=== PATIENT | female | born 1965 | race American Indian/Alaskan Native ===

== ENCOUNTER 2019-07-14 12:41 | Emergency (ER) | payer OTHER ==
--- NOTE | 2019-07-14 13:08 | Event Note ---
ED Screening Note Date of service: 07/14/19 Time: 13:02 ED Screening Note: This is a 53 y.o. F. that presents to the ER with palpitations and headache since this morning. Taking Tylenol with no improvement of symptoms. This initial assessment/diagnostic orders/clinical plan/treatment(s) is/are subject to change based on patients health status, clinical progression and re- assessment by fellow clinical providers in the ED. Further treatment and workup at subsequent clinical providers discretion. Patient/guardian urged not to elope from the ED as their condition may be serious if not clinically assessed and managed. Initial orders include: Labs EKG CXR
--- NOTE | 2019-07-14 13:32 | XRay Report ---
CHEST 2 VIEWS INDICATION / CLINICAL INFORMATION: palpitations. COMPARISON: None available. FINDINGS: SUPPORT DEVICES: None. HEART / MEDIASTINUM: There is atherosclerosis in the thoracic aorta with mild ectasia of the thoracic aorta. Heart size is normal. LUNGS / PLEURA: No significant pulmonary or pleural abnormality. No pneumothorax. ADDITIONAL FINDINGS: No significant additional findings. IMPRESSION: 1. No acute pulmonary abnormality. 2. Mild ectasia of the thoracic aorta, chronicity indeterminate. Signer Name: Christo Fisher MD Signed: 07/14/2019 1:28 PM Workstation Name: [id number]
[2019-07-14 13:52] LABS: Eosinophils % (Auto) 0.6 % (0.0-4.3); Hematocrit 42.5 % (30.3-42.9); Hemoglobin 14.3 gm/dl (10.1-14.3); Lymphocytes # (Auto) 1.7 K/mm3 (1.2-5.4); Lymphocytes % (Auto) 35.4 % (13.4-35.0); Mean Corpuscular HGB Conc 34 % (30-34); Mean Corpuscular Volume 94 fl (79-97); Monocytes # (Auto) 0.4 K/mm3 (0.0-0.8); Monocytes % (Auto) 7.6 % (0.0-7.3); Platelet Count 267 K/mm3 (140-440); Red Cell Distribution Width 12.7 % (13.2-15.2)
[2019-07-14 14:10] LABS: Alanine Aminotransferase 27 units/L (7-56); Albumin 5.1 g/dL (3.9-5); BUN/Creatinine Ratio 13; Blood Urea Nitrogen 9 mg/dL (7-17); Calcium 10.6 mg/dL (8.4-10.2); Hemolysis Index 5
[2019-07-14] MEDS: cloNIDine 0.1 MG TAB PO ONE ×2 (14:22→17:55)
[2019-07-14] MEDS: ASPIRIN 81 MG TAB CHEW PO ONE (14:22)
[2019-07-14 14:37] LABS: INR 1.23 (0.87-1.13); Partial Thromboplastin Time 32.8 Sec. (24.2-36.6)
--- NOTE | 2019-07-14 17:48 | Emergency Department Report ---
<ESTRELLA POPE P - Last Filed: 07/14/19 18:18> ED Palpitations HPI - General Chief Complaint: Arrhythmia/Palpitations Stated Complaint: HEART RACING/BP HIGH Time Seen by Provider: 07/14/19 13:02 Source: patient Mode of arrival: Ambulatory Limitations: No Limitations - History of Present Illness Initial Comments: Patient reports palpitations. Reports she feels like her body is vibrating. Reports hx of HTN. Reports non-compliant with anti-hypertensives for approximately 10 years. Reports she uses herbs to treat her HTN. Denies drugs/alcohol. -: Gradual, days(s) Context: occured during rest Associated Symptoms: denies: chest pain, shortness of breath, syncope, near- syncope, nausea/vomiting, anxiety, diaphoresis, cough, parasthesias, feeling of impending doom, muscle cramps - Related Data Previous Rx's Medication Instructions Recorded Last Taken Type Azithromycin [Zithromax Z-JEANETTE] 250 mg PO DAILY #6 tablet 07/14/19 Unknown Rx amLODIPine 10 mg PO DAILY #30 tab 07/14/19 Unknown Rx hydroCHLOROthiazide [Hctz] 12.5 mg PO QDAY #30 capsule 07/14/19 Unknown Rx Allergies Allergy/AdvReac Type Severity Reaction Status Date / Time No Known Allergies Allergy Verified 07/14/19 20:34 ED Review of Systems Other: GENERAL: No weight change, fatigue, fever, chills, or night sweats SKIN: No changes in skin or hair, no itching, no rashes, no jaundice HEAD: No trauma EYES: No blurriness, tearing, itching, acute visual loss, conjunctival discoloration, or scleral icterus EARS: No hearing loss, tinnitus, vertigo, or earache NOSE: No rhinorrhea, stuffiness, sneezing, itching, or epistaxis MOUTH: No bleeding gums, hoarseness, sore throat, or swelling CARDIAC: Palpitations. No new murmur, chest pain, dyspnea on exertion, orthopnea, PND, or edema RESPIRATORY: No shortness of breath, wheeze, cough, sputum production, hemoptysis GI: No abdominal pain, nausea, vomiting, dysphagia, diarrhea, constipation, hematemesis, melena, hematochezia URINARY: No frequency, urgency, polyuria, dysuria, hematuria, or incontinence MUSCULOSKELETAL: No muscle weakness, joint stiffness, decrease in range of motion, redness, swelling NEUROLOGIC: No headache, syncope, loss of sensation, numbness, tingling, tremors, weakness, paralysis, seizures HEMATOLOGIC: No anemia, easy bruising, bleeding, petechiae, or purpura ENDOCRINE: No hot or cold intolerance, sweating, polyuria, polydipsia or, polyphagia no thyroid problems PSYCHIATRIC: No change in mood, no anxiety, no depression ED Past Medical Hx - Past Medical History Previous Medical History?: Yes Hx Hypertension: Yes - Surgical History Past Surgical History?: Yes Additional Surgical History: x 2 - Social History Smoking Status: Never Smoker Substance Use Type: None - Medications Home Medications: Home Medications Medication Instructions Recorded Confirmed Last Taken Type Azithromycin [Zithromax Z-JEANETTE] 250 mg PO DAILY #6 tablet 07/14/19 Unknown Rx amLODIPine 10 mg PO DAILY #30 tab 07/14/19 Unknown Rx hydroCHLOROthiazide [Hctz] 12.5 mg PO QDAY #30 capsule 07/14/19 Unknown Rx ED Physical Exam - General Limitations: No Limitations - Other Other exam information: GENERAL: Patient in no acute distress HEAD: Normocephalic, atraumatic EYES: PERRLA, EOM intact, no scleral icterus, no conjunctival hemorrhage, visual joel and acuity wnl NOSE: No tenderness, discharge, sinus tenderness MOUTH: No erythema, bleeding, exudate HEART: Tachycardia, no murmur, S1-S2 are auscultated, no edema, pulses are symmetric LUNGS: No respiratory distress. Bilateral breath sounds, No tachypnea, No retractions, No wheezing, rales, rhonchi ABDOMEN: Normal bowel sounds, abdomen soft, no tenderness, no rebound, no guarding, no distention, no masses, no CVA tenderness MUSCULOSKELETAL: Normal joint range of motion, no redness, no swelling, no tenderness NEUROLOGIC: GCS 15, Alert and Oriented x3, Cranial nerves intact, normal sensation, normal strength, no cerebellar deficit, NIHSS 0 PSYCHIATRIC: No homicidal or suicidal ideation, o hallucinations SKIN: Skin is warm and dry, no wounds, no rashes ED Medical Decision Making - Lab Data Result diagrams: 07/14/19 13:24 07/14/19 13:24 Laboratory Results - last 24 hr 07/14/19 07/14/19 07/14/19 13:24 13:24 13:24 WBC 4.7 RBC 4.50 Hgb 14.3 Hct 42.5 MCV 94 MCH 32 MCHC 34 RDW 12.7 L Plt Count 267 Lymph % (Auto) 35.4 H [place] % (Auto) 7.6 H Eos % (Auto) 0.6 Baso % (Auto) 1.0 Lymph # 1.7 [place] # 0.4 Eos # 0.0 Baso # 0.0 Seg Neutrophils % 55.4 Seg Neutrophils # 2.6 PT INR APTT Sodium 140 Potassium 3.3 L Chloride 98.3 Carbon Dioxide 27 Anion Gap 18 BUN 9 Creatinine 0.7 Estimated GFR > 60 BUN/Creatinine Ratio 13 Glucose 137 H Calcium 10.6 H Magnesium Total Bilirubin 0.50 AST 37 ALT 27 Alkaline Phosphatase 71 Total Creatine Kinase Troponin T NT-Pro-B Natriuret Pep Total Protein 8.8 H Albumin 5.1 H Albumin/Globulin Ratio 1.4 TSH 0.834 07/14/19 07/14/19 07/14/19 13:24 14:07 14:07 WBC RBC Hgb Hct MCV MCH MCHC RDW Plt Count Lymph % (Auto) [place] % (Auto) Eos % (Auto) Baso % (Auto) Lymph # [place] # Eos # Baso # Seg Neutrophils % Seg Neutrophils # PT 15.7 H INR 1.23 H APTT 32.8 Sodium Potassium Chloride Carbon Dioxide Anion Gap BUN Creatinine Estimated GFR BUN/Creatinine Ratio Glucose Calcium Magnesium 1.90 Total Bilirubin AST ALT Alkaline Phosphatase Total Creatine Kinase 417 H Troponin T < 0.010 NT-Pro-B Natriuret Pep 38.90 Total Protein Albumin Albumin/Globulin Ratio TSH - EKG Data When compared to previous EKG there are: no significant change - Radiology Data Radiology results: report reviewed - Medical Decision Making patient comfortable. Dr. Gilmore updated and agrees to follow results and disposition patient ED Disposition Clinical Impression: Hypertension, Anxiety, Atelectasis of both lungs Disposition: TO HOME OR SELFCARE Condition: Stable Instructions: Hypertension (ED), Pneumonia (ED), Social Anxiety Disorder (ED) Additional Instructions: return if worse Prescriptions: amLODIPine 10 mg PO DAILY #30 tab hydroCHLOROthiazide [Hctz] 12.5 mg PO QDAY #30 capsule Azithromycin [Zithromax Z-JEANETTE] 250 mg PO DAILY #6 tablet Referrals: PRIMARY CARE, [Primary Care Provider] - 3-5 Days JESSICA UNGER MD [Staff Physician] - 3-5 Days MARCELL RAMIREZ MD [Staff Physician] - 3-5 Days [facility], [Provider Group] - 3-5 Days [facility] [Provider Group] - 3-5 Days [facility] [Provider Group] - 3-5 Days OLEGARIO LYMAN MD [Staff Physician] - 3-5 Days SADAF BETANCOURT MD [Staff Physician] - 3-5 Days <TURNER GILMORE. - Last Filed: 07/14/19 21:16> ED Review of Systems ROS: Stated complaint: HEART RACING/BP HIGH Other details as noted in HPI ED Course Vital Signs 07/14/19 07/14/19 07/14/19 13:03 14:57 15:11 Temperature 98.4 F Pulse Rate 138 H 118 H 117 H Respiratory 16 15 16 Rate Blood Pressure 233/154 217/130 208/133 Blood Pressure [Left] O2 Sat by Pulse 100 99 98 Oximetry 07/14/19 07/14/19 07/14/19 15:37 15:45 15:59 Temperature Pulse Rate 118 H 115 H 120 H Respiratory 17 17 17 Rate Blood Pressure 208/133 209/128 209/128 Blood Pressure [Left] O2 Sat by Pulse 99 99 98 Oximetry 07/14/19 07/14/19 07/14/19 16:43 17:15 17:56 Temperature Pulse Rate 123 H 126 H Respiratory 20 18 Rate Blood Pressure 183/129 186/116 Blood Pressure [Left] O2 Sat by Pulse 98 97 100 Oximetry 07/14/19 07/14/19 07/14/19 17:58 18:35 19:00 Temperature Pulse Rate 123 H 123 H 114 H Respiratory 14 18 15 Rate Blood Pressure 171/118 Blood Pressure 197/127 191/131 [Left] O2 Sat by Pulse 98 97 98 Oximetry 07/14/19 07/14/19 07/14/19 19:30 19:52 20:00 Temperature 98.7 F Pulse Rate 118 H 118 H 116 H Respiratory 17 17 17 Rate Blood Pressure 165/112 171/111 Blood Pressure 165/112 [Left] O2 Sat by Pulse 98 98 97 Oximetry 07/14/19 20:42 Temperature Pulse Rate 117 H Respiratory Rate Blood Pressure 175/117 Blood Pressure [Left] O2 Sat by Pulse Oximetry ED Medical Decision Making - Lab Data Result diagrams: 07/14/19 13:24 07/14/19 13:24 - Medical Decision Making Addendum done by Turner Gilmore M.D. Reexamination of the patient at 9:05 PM the patient's heart rate is 103. Discussed with patient any causes of having heart palpitations which she tells me she has a history of anxiety and social phobias. Discussed results with the patient and plan of care A she give IV labetalol for her blood pressure Critical Care Time: Yes Critical care time in (mins) excluding proc time.: 45 Critical care attestation.: If time is entered above; I have spent that time in minutes in the direct care of this critically ill patient, excluding procedure time. ED Disposition Is pt being admited?: No Does the pt Need Aspirin: No Time of Disposition: 21:13
--- NOTE | 2019-07-14 18:34 | Cat Scan Report ---
CTA chest with contrast INDICATION : Tachycardia. TECHNIQUE: Axial imaging performed through the chest, with contrast bolus timing set to maximize opa cification of the pulmonary arteries. 3-plane MIP reformatted images were obtained. All CT scans at this location are performed using CT dose reduction for ALARA by means of automated exposure control. 100 mL of intravenous contrast administered. COMPARISON: None FINDINGS: Bolus: Contrast bolus timing is adequate; however, there is respiratory motion artifact specially in the lung bases. PTE: The subsegmental distribution is suboptimally evaluated given the above limitations. No central or segmental PTE identified. Mediastinum: Heart and great vessels appear normal. No pathologic mediastinal adenopathy. Lungs: Mild streaky airspace disease greatest in the left lung base and in the right middle lobe sug gesting atelectasis. Otherwise clear lungs. Upper abdomen: Limited imaging of the upper abdomen shows nothing acute. Bones: Degenerative changes in the spine with nothing acute. IMPRESSION: 1. Motion limited exam in the lung bases which precludes adequate evaluation of the subsegmental dist ribution. No central or segmental PTE. 2. Areas of mild streaky airspace disease in the lungs likely representing atelectasis. Signer Name: Dimitri Branch MD Signed: 07/14/2019 6:29 PM Workstation Name: [id number]
[2019-07-14] MEDS: SODIUM CHLORIDE 0.9% 1000 ML 1,000 ML IV ONE (18:41)
[2019-07-14 19:48] LABS: Amphetamine Screen,Urine PRESUMPTIVE NEGATIVE; Benzodiazepines Screen,Urine PRESUMPTIVE NEGATIVE; Cannabinoid Screen,Urine PRESUMPTIVE NEGATIVE; Cocaine Screen,Urine PRESUMPTIVE NEGATIVE; Methadone Screen,Urine PRESUMPTIVE NEGATIVE; Opiate Screen,Urine PRESUMPTIVE NEGATIVE
[2019-07-14 19:49] LABS: Bilirubin,Urine NEG (Negative); Blood,Urine NEG (Negative); Color,Urine Straw (Yellow); Mucus,Urine FEW /HPF; Protein,Urine <15 mg/dL mg/dL (Negative); Urobilinogen,Urine < 2.0 mg/dL (<2.0); WBC,Urine < 1.0 /HPF (0.0-6.0)
[2019-07-14] MEDS: levoFLOXacin 750 MG TAB PO ONE (21:30)
[2019-07-14 22:00] VITALS: BP 147/97
== END 2019-07-14 21:59 | disposition home or self-care (01) ==
LOC: ED 12:41
DX: I10 Essential (primary) hypertension (principal); F41.9 Anxiety disorder, unspecified; J98.11 Atelectasis; Z98.890 Other specified postprocedural states; Z79.899 Other long term (current) drug therapy
CPT/HCPCS: 36415; 71046; 71275; 80053; 80307; 81001; 82550; 83735; 83880; 84443; 84484; 85025; 85610; 85730; 93005; 93010; 96374; 99285; Q9967

== ENCOUNTER 2019-07-21 10:11 | Emergency (ER) | payer OTHER ==
[2019-07-21 10:28] VITALS: BP 230/134
[2019-07-21 11:25] LABS: Hematocrit 42.5 % (30.3-42.9); Hemoglobin 14.4 gm/dl (10.1-14.3); Mean Corpuscular HGB Conc 34 % (30-34); Mean Corpuscular Volume 94 fl (79-97); Platelet Count 267 K/mm3 (140-440); Red Blood Count 4.55 M/mm3 (3.65-5.03); Red Cell Distribution Width 12.8 % (13.2-15.2)
[2019-07-21 11:53] LABS: Alanine Aminotransferase 37 units/L (7-56); Albumin 4.9 g/dL (3.9-5); BUN/Creatinine Ratio 13; Blood Urea Nitrogen 10 mg/dL (7-17); Calcium 10.5 mg/dL (8.4-10.2); Hemolysis Index 6
--- NOTE | 2019-07-21 12:22 | XRay Report ---
CHEST 2 VIEWS INDICATION: palpitations. COMPARISON: 07/14/2019 FINDINGS: Support devices: None. Heart: Within normal limits. Lungs/Pleura: No acute air space or interstitial disease. No significant pleural effusion. IMPRESSION: No acute findings. Signer Name: Jose Pena MD Signed: 07/21/2019 12:18 PM Workstation Name: [id number]
--- NOTE | 2019-07-21 12:40 | Emergency Department Report ---
HPI - General Chief Complaint: Arrhythmia/Palpitations Time Seen by Provider: 07/21/19 12:20 - HPI HPI: Room 4 The patient is a 54-year-old female presenting with a chief complaint of elevated heart rate. The patient was seen in this ED on 2019 for p alpitations. Patient was eventually discharged with amlodipine, hydrochlorothiazide and azithromycin. Patient states she stopped taking her amlodipine 3 days ago because she felt it may have been causing early satiety. The patient states for one week she's had a decreased appetite. Location: [See above] Duration: [See above] Quality: [See above] Severity: [See above] Timing: [See above] Context: [See above] Modifying factors: [See above] Associated signs and symptoms: [see above] ED Past Medical Hx - Past Medical History Previous Medical History?: Yes Hx Hypertension: Yes - Surgical History Past Surgical History?: Yes Additional Surgical History: x 2 - Family History Family history: no significant - Social History Smoking Status: Never Smoker Substance Use Type: None - Medications Home Medications: Home Medications Medication Instructions Recorded Confirmed Last Taken Type Azithromycin [Zithromax Z-JEANETTE] 250 mg PO DAILY #6 tablet 07/14/19 Unknown Rx amLODIPine 10 mg PO DAILY #30 tab 07/14/19 Unknown Rx hydroCHLOROthiazide [Hctz] 12.5 mg PO QDAY #30 capsule 07/14/19 Unknown Rx Metoprolol [Lopressor TAB] 25 mg PO BID #30 tablet 07/21/19 Unknown Rx ED Review of Systems ROS: Stated complaint: HEART RACING/BP Other details as noted in HPI Constitutional: no symptoms reported Eyes: denies: eye pain ENT: denies: throat pain Respiratory: no symptoms reported Cardiovascular: palpitations Endocrine: no symptoms reported Genitourinary: denies: dysuria Musculoskeletal: denies: back pain Physical Exam - Physical Exam Vital Signs: Vital Signs 07/21/19 10:27 Temperature 98.2 F Pulse Rate 130 H Respiratory 16 Rate Blood Pressure 230/134 O2 Sat by Pulse 97 Oximetry Physical Exam: GENERAL: The patient is well-developed well-nourished female sitting on stretcher not appearing to be in acute distress. [] HEENT: Normocephalic. Atraumatic. Extraocular motions are intact. Patient has moist mucous membranes. NECK: Supple. Trachea midline CHEST/LUNGS: Clear to auscultation. There is no respiratory distress noted. HEART/CARDIOVASCULAR: Regular. There is tachycardia. There is no gallop rub or murmur. ABDOMEN: Abdomen is soft, nontender. Patient has normal bowel sounds. There is no abdominal distention. SKIN: There is no rash. There is no diaphoresis. NEURO: The patient is awake, alert, and oriented. The patient is cooperative. The patient has normal speech MUSCULOSKELETAL: There is no evidence of acute injury. ED Course Vital Signs 07/21/19 10:27 Temperature 98.2 F Pulse Rate 130 H Respiratory 16 Rate Blood Pressure 230/134 O2 Sat by Pulse 97 Oximetry ED Medical Decision Making - Lab Data Result diagrams: 07/21/19 11:16 07/21/19 11:16 Laboratory Tests 07/21/19 07/21/19 07/21/19 11:16 11:16 11:16 WBC 4.9 RBC 4.55 Hgb 14.4 H Hct 42.5 MCV 94 MCH 32 MCHC 34 RDW 12.8 L Plt Count 267 Add Manual Diff Complete Total Counted 100 Seg Neuts % (Manual) 76.0 H Band Neutrophils % 0 Lymphocytes % (Manual) 23.0 Reactive Lymphs % (Man) 0 Monocytes % (Manual) 1.0 Eosinophils % (Manual) 0 Basophils % (Manual) 0 Metamyelocytes % 0 Myelocytes % 0 Promyelocytes % 0 Blast Cells % 0 Nucleated RBC % Not Reportable Seg Neutrophils # Man 3.7 Band Neutrophils # 0.0 Lymphocytes # (Manual) 1.1 L Abs React Lymphs (Man) 0.0 Monocytes # (Manual) 0.0 Eosinophils # (Manual) 0.0 Basophils # (Manual) 0.0 Metamyelocytes # 0.0 Myelocytes # 0.0 Promyelocytes # 0.0 Blast Cells # 0.0 WBC Morphology Not Reportable Hypersegmented Neuts Not Reportable Hyposegmented Neuts Not Reportable Hypogranular Neuts Not Reportable Smudge Cells Not Reportable Toxic Granulation Not Reportable Toxic Vacuolation Not Reportable Dohle Bodies Not Reportable Pelger-Huet Anomaly Not Reportable Omar Rods Not Reportable Platelet Estimate Consistent w auto Clumped Platelets Not Reportable Plt Clumps, EDTA Not Reportable Large Platelets Rare Giant Platelets Not Reportable Platelet Satelliting Not Reportable Plt Morphology Comment Not Reportable RBC Morphology Normal Dimorphic RBCs Not Reportable Polychromasia Not Reportable Hypochromasia Not Reportable Poikilocytosis Not Reportable Anisocytosis Not Reportable Microcytosis Not Reportable Macrocytosis Not Reportable Spherocytes Not Reportable Pappenheimer Bodies Not Reportable Sickle Cells Not Reportable Target Cells Not Reportable Tear Drop Cells Not Reportable Ovalocytes Not Reportable Helmet Cells Not Reportable [place] Bodies Not Reportable [place] Rings Not Reportable [place] Cells Not Reportable Bite Cells Not Reportable Crenated Cell Not Reportable Elliptocytes Not Reportable Acanthocytes (Spur) Not Reportable Rouleaux Not Reportable Hemoglobin C Crystals Not Reportable Schistocytes Not Reportable Malaria parasites Not Reportable Vivek Bodies Not Reportable Hem Pathologist Commnt No Sodium 140 Potassium 3.6 Chloride 95.2 L Carbon Dioxide 27 Anion Gap 21 BUN 10 Creatinine 0.8 Estimated GFR > 60 BUN/Creatinine Ratio 13 Glucose 135 H Calcium 10.5 H Total Bilirubin 0.60 AST 32 ALT 37 Alkaline Phosphatase 67 Troponin T < 0.010 Total Protein 8.9 H Albumin 4.9 Albumin/Globulin Ratio 1.2 TSH 1.760 Urine Color Urine Turbidity Urine pH Ur Specific [place] Urine Protein Urine Glucose (UA) Urine Ketones Urine Blood Urine Nitrite Ur Reducing Substances Urine Bilirubin Urine Ictotest Urine Urobilinogen Ur Leukocyte Esterase Urine WBC (Auto) Urine RBC (Auto) U Epithel Cells (Auto) Urine Mucus 07/21/19 13:03 WBC RBC Hgb Hct MCV MCH MCHC RDW Plt Count Add Manual Diff Total Counted Seg Neuts % (Manual) Band Neutrophils % Lymphocytes % (Manual) Reactive Lymphs % (Man) Monocytes % (Manual) Eosinophils % (Manual) Basophils % (Manual) Metamyelocytes % Myelocytes % Promyelocytes % Blast Cells % Nucleated RBC % Seg Neutrophils # Man Band Neutrophils # Lymphocytes # (Manual) Abs React Lymphs (Man) Monocytes # (Manual) Eosinophils # (Manual) Basophils # (Manual) Metamyelocytes # Myelocytes # Promyelocytes # Blast Cells # WBC Morphology Hypersegmented Neuts Hyposegmented Neuts Hypogranular Neuts Smudge Cells Toxic Granulation Toxic Vacuolation Dohle Bodies Pelger-Huet Anomaly Omar Rods Platelet Estimate Clumped Platelets Plt Clumps, EDTA Large Platelets Giant Platelets Platelet Satelliting Plt Morphology Comment RBC Morphology Dimorphic RBCs Polychromasia Hypochromasia Poikilocytosis Anisocytosis Microcytosis Macrocytosis Spherocytes Pappenheimer Bodies Sickle Cells Target Cells Tear Drop Cells Ovalocytes Helmet Cells [place] Bodies [place] Rings Sharad Cells Bite Cells Crenated Cell Elliptocytes Acanthocytes (Spur) Rouleaux Hemoglobin C Crystals Schistocytes Malaria parasites Vivek Bodies Hem Pathologist Commnt Sodium Potassium Chloride Carbon Dioxide Anion Gap BUN Creatinine Estimated GFR BUN/Creatinine Ratio Glucose Calcium Total Bilirubin AST ALT Alkaline Phosphatase Troponin T Total Protein Albumin Albumin/Globulin Ratio TSH Urine Color Yellow Urine Turbidity Clear Urine pH 6.0 Ur Specific [place] 1.011 Urine Protein <15 mg/dl Urine Glucose (UA) Neg Urine Ketones 20 Urine Blood Neg Urine Nitrite Neg Ur Reducing Substances Not Reportable Urine Bilirubin Neg Urine Ictotest Not Reportable Urine Urobilinogen < 2.0 Ur Leukocyte Esterase Lg Urine WBC (Auto) 1.0 Urine RBC (Auto) 1.0 U Epithel Cells (Auto) < 1.0 Urine Mucus Few - EKG Data -: EKG Interpreted by Me EKG shows normal: sinus rhythm Rate: tachycardia (116 bpm) - EKG Data When compared to previous EKG there are: previous EKG unavailable Interpretation: other (no ischemic changes seen) - Radiology Data Radiology results: report reviewed (chest x-ray), image reviewed (chest x-ray) interpreted by me: Chest x-ray-no focal infiltrates, no pneumothorax [facility] [address] [place] [address] XRay Report Signed Patient: EDNA BUENO MR#: [id number] : 1965 Acct:[id number] Age/Sex: 54 / F ADM Date: 07/21/19 Loc: ED Attending Dr: Ordering Physician: GUZMAN RODRIGUEZ Date of Service: 07/21/19 Procedure(s): XR chest routine 2V Accession Number(s): [id number] cc: GUZMAN RODRIGUEZ Fluoro Time In Minutes: CHEST 2 VIEWS INDICATION: palpitations. COMPARISON: 07/14/2019 FINDINGS: Support devices: None. Heart: Within normal limits. Lungs/Pleura: No acute air space or interstitial disease. No significant pleural effusion. IMPRESSION: No acute findings. Signer Name: Jose Pena MD Signed: 07/21/2019 12:18 PM Workstation Name: [id number] Transcribed By: ES Dictated By: Jose Pena MD Electronically Authenticated By: Jose Pena MD Signed Date/Time: 07/21/191217 DD/ 16 TD/TT:\ - Differential Diagnosis palpitations, Critical care attestation.: If time is entered above; I have spent that time in minutes in the direct care of this critically ill patient, excluding procedure time. 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 Please follow-up with him for further evaluation) Time of Disposition: 14:12
[2019-07-21 12:41] LABS: Basophils % (Manual) 0 % (0.0-1.8); Eosinophils % (Manual) 0 % (0.0-4.3); Total Cells Counted 100
[2019-07-21 12:52] LABS: Large Platelets Rare; Platelet Estimate Consistent w Auto; RBC Morphology Normal
[2019-07-21 13:34] LABS: Mucus,Urine FEW /HPF
[2019-07-21 13:35] LABS: Bilirubin,Urine NEG (Negative); Blood,Urine NEG (Negative); Color,Urine Yellow (Yellow); Protein,Urine <15 mg/dL mg/dL (Negative); Urobilinogen,Urine < 2.0 mg/dL (<2.0)
== END 2019-07-21 15:00 | disposition home or self-care (01) ==
LOC: ED 10:11
DX: R00.2 Palpitations (principal); I10 Essential (primary) hypertension
CPT/HCPCS: 36415; 71046; 80053; 81001; 84443; 84484; 85007; 85025; 93005; 93010; 96374

== ENCOUNTER 2021-10-03 17:45 | Emergency (ER) | payer OTHER ==
--- NOTE | 2021-10-03 19:07 | XRay Report ---
CHEST 2 VIEWS INDICATION / CLINICAL INFORMATION: Dysrhythmia STUDY TIME: 1857 COMPARISON: 07/21/2019 FINDINGS: SUPPORT DEVICES: None. HEART / MEDIASTINUM: No significant abnormality. LUNGS / PLEURA: No significant acute pulmonary or pleural abnormality. No pneumothorax. ADDITIONAL FINDINGS: No significant additional findings. Signer Name: Oscar Guo MD Signed: 10/03/2021 7:02 PM Workstation Name: [id number]
[2021-10-03] MEDS ORDERED: METOPROLOL TARTRATE 5 MG/5 ML INJ IV ONE (19:16)
[2021-10-03] MEDS ORDERED: HEPARIN 10,000 UNITS/10 ML VIAL IV PRN (19:16)
[2021-10-03] MEDS ORDERED: SODIUM CHLORIDE 0.9% 1000 ML 1,000 ML IV ONE (19:16)
[2021-10-03 19:30] LABS: Basophils # (Auto) 0.1 K/mm3 (0.0-0.1); Basophils % (Auto) 0.9 % (0.0-1.8); Eosinophils % (Auto) 0.1 % (0.0-4.3); Hematocrit 42.4 % (30.3-42.9); Hemoglobin 13.9 gm/dl (10.1-14.3); Lymphocytes # (Auto) 1.4 K/mm3 (1.2-5.4); Lymphocytes % (Auto) 24.7 % (13.4-35.0); Mean Corpuscular HGB Conc 33 % (30-34); Mean Corpuscular Volume 96 fl (79-97); Monocytes # (Auto) 0.6 K/mm3 (0.0-0.8); Platelet Count 261 K/mm3 (140-440); Red Blood Count 4.43 M/mm3 (3.65-5.03); Red Cell Distribution Width 13.1 % (13.2-15.2)
[2021-10-03 19:49] LABS: Alanine Aminotransferase 23 units/L (7-56); Albumin 4.8 g/dL (3.9-5); Blood Urea Nitrogen 7 mg/dL (7-17); Calcium 10.4 mg/dL (8.4-10.2); Hemolysis Index 4
[2021-10-03 19:55] LABS: BUN/Creatinine Ratio 12
[2021-10-03] MEDS ORDERED: POTASSIUM CHLORIDE ER 20 MEQ TAB PO ONE (19:56)
[2021-10-03 20:20] LABS: Creatine Kinase MB 3.1 ng/mL (0.0-4.0)
[2021-10-03 20:22] LABS: INR 1.14 (0.87-1.13)
--- NOTE | 2021-10-03 20:53 | Emergency Department Report ---
ED Palpitations HPI - General Chief Complaint: Arrhythmia/Palpitations Stated Complaint: HEART RACING/DIZZNESS,AB PAIN Time Seen by Provider: 10/03/21 19:03 Source: patient Mode of arrival: Wheelchair Limitations: No Limitations - History of Present Illness Initial Comments: c/o heart racing x 30 days. dizziness x 30 days, worse today. PT HAS DIAGNOSIS OF htN BUT DOESN;T TAKE MEDS BECAUSE SHE CNANOT AFFORD IT, HAS BEEN USING [facility] FOR HER bp, BUT HAS BEEN FEELING BAD LATELY NO CHETS PAIN NOS SOB MD Complaint: rapid heart beat -: Gradual, week(s) Context: occured during rest Associated Symptoms: denies: denies other symptoms, chest pain, shortness of breath, syncope - Related Data Previous Rx's Medication Instructions Recorded Last Taken Type Azithromycin [Zithromax Z-JEANETTE] 250 mg PO DAILY #6 tablet 07/14/19 Unknown Rx amLODIPine 10 mg PO DAILY #30 tab 07/14/19 Unknown Rx hydroCHLOROthiazide [Hctz] 12.5 mg PO QDAY #30 capsule 07/14/19 Unknown Rx Metoprolol [Lopressor TAB] 25 mg PO BID #30 tablet 07/21/19 Unknown Rx Metoprolol [Lopressor] 25 mg PO BID #60 tablet 10/03/21 Unknown Rx Allergies Allergy/AdvReac Type Severity Reaction Status Date / Time No Known Allergies Allergy Verified 07/14/19 20:34 ED Review of Systems ROS: Stated complaint: HEART RACING/DIZZNESS,AB PAIN Other details as noted in HPI Constitutional: denies: chills, fever Eyes: denies: eye pain, eye discharge, vision change ENT: denies: ear pain, throat pain Respiratory: denies: cough, shortness of breath, wheezing Cardiovascular: denies: chest pain, palpitations Endocrine: no symptoms reported Gastrointestinal: denies: abdominal pain, nausea, diarrhea Genitourinary: denies: urgency, dysuria, discharge Musculoskeletal: denies: back pain, joint swelling, arthralgia Skin: denies: rash, lesions Neurological: denies: headache, weakness, paresthesias Psychiatric: denies: anxiety, depression Hematological/Lymphatic: denies: easy bleeding, easy bruising ED Past Medical Hx - Past Medical History Hx Hypertension: Yes - Surgical History Additional Surgical History: x 2 - Social History Smoking Status: Never Smoker Substance Use Type: None - Medications Home Medications: Home Medications Medication Instructions Recorded Confirmed Last Taken Type Azithromycin [Zithromax Z-JEANETTE] 250 mg PO DAILY #6 tablet 07/14/19 Unknown Rx amLODIPine 10 mg PO DAILY #30 tab 07/14/19 Unknown Rx hydroCHLOROthiazide [Hctz] 12.5 mg PO QDAY #30 capsule 07/14/19 Unknown Rx Metoprolol [Lopressor TAB] 25 mg PO BID #30 tablet 07/21/19 Unknown Rx Metoprolol [Lopressor] 25 mg PO BID #60 tablet 10/03/21 Unknown Rx ED Physical Exam - General Limitations: No Limitations General appearance: alert, in no apparent distress - Head Head exam: Present: atraumatic, normocephalic - Eye Eye exam: Present: normal appearance - ENT ENT exam: Present: mucous membranes moist - Neck Neck exam: Present: normal inspection - Respiratory Respiratory exam: Present: normal lung sounds bilaterally. Absent: respiratory distress - Cardiovascular Cardiovascular Exam: Present: regular rate, normal rhythm. Absent: systolic murmur, diastolic murmur, rubs, gallop - GI/Abdominal GI/Abdominal exam: Present: soft, normal bowel sounds - Extremities Exam Extremities exam: Present: normal inspection - Back Exam Back exam: Present: normal inspection - Neurological Exam Neurological exam: Present: alert, oriented X3 - Psychiatric Psychiatric exam: Present: normal affect, normal mood - Skin Skin exam: Present: warm, dry, intact, normal color. Absent: rash ED Course Vital Signs 10/03/21 10/03/21 10/03/21 17:57 19:19 19:31 Temperature 97.8 F Pulse Rate 130 H 108 H Respiratory 18 13 Rate Blood Pressure Blood Pressure 153/110 [Right] O2 Sat by Pulse 97 97 98 Oximetry 10/03/21 10/03/21 10/03/21 19:45 20:01 20:10 Temperature 98.4 F Pulse Rate 102 H 102 H Respiratory 12 11 L Rate Blood Pressure 145/92 Blood Pressure [Right] O2 Sat by Pulse 98 100 Oximetry 10/03/21 20:12 Temperature Pulse Rate 102 H Respiratory Rate Blood Pressure 145/92 Blood Pressure [Right] O2 Sat by Pulse Oximetry ED Medical Decision Making - Lab Data Result diagrams: 10/03/21 19:03 10/03/21 19:03 - EKG Data -: EKG Interpreted by Me EKG shows normal: sinus rhythm Rate: tachycardia - Radiology Data Radiology results: report reviewed, image reviewed - Medical Decision Making FAWAD DANIELLAHELEN WITH GOOD RESULT , PT WAS ADVISED TO SEE HER PCP FOR MEDS REFILLS , Critical care attestation.: If time is entered above; I have spent that time in minutes in the direct care of this critically ill patient, excluding procedure time. ED Disposition Clinical Impression: Palpitation, Uncontrolled hypertension, Hypovolemia, Non compliance with medical treatment, Diverticulosis Disposition: 01 HOME / SELF CARE / HOMELESS Is pt being admited?: No Does the pt Need Aspirin: No Condition: Stable Instructions: Hypertension (ED), Palpitations, [id number], Hypertension, Adult, [id number], Hypertension, Adult, Diverticulosis Referrals: PRIMARY CARE, [Primary Care Provider] - 3-5 Days ELISEO THORNTON MD [Staff Physician] - 3-5 Days
[2021-10-03 21:49] VITALS: BP 149/94
--- NOTE | 2021-10-05 17:53 | Electrocardiograph Report ---
[facility] Test Date: 2021-10-03 Test Time: 18:25:44 Pat Name: EDNA BUENO Department: Room: Gender: F Band And Cuff C[employer]: ELISA : 1965 Requested By: JOSHUA BAILON Order Number: [id number] Reading MD: Sakshi Cedillo Measurements Intervals [place] Rate: 113 P: 38 MN: 158 QRS: 31 QRSD: 75 T: -52 QT: 309 QTc: 424 Interpretive Statements Sinus tachycardia Probable left atrial enlargement No previous ECG available for comparison Electronically Signed On 10-05-2021 17:52:46 EDT by Sakshi Cedillo
== END 2021-10-03 21:50 | disposition home or self-care (01) ==
LOC: ED 17:45
DX: R00.2 Palpitations (principal); I10 Essential (primary) hypertension; E87.6 Hypokalemia; K57.90 Diverticulosis of intestine, part unspecified, without perforation or abscess without bleeding; Z91.14 Patient's other noncompliance with medication regimen
CPT/HCPCS: 36415; 71046; 80053; 82550; 82553; 83735; 84443; 84484; 85025; 85610; 93005; 96361; 96374; 99284; J7030; J9280; Q0162

== ENCOUNTER 2021-10-08 15:56 | Emergency (ER) | payer OTHER | END 2021-10-08 18:45 | disposition left against medical advice (07) | LOC: ED 15:56 | DX: R14.0 Abdominal distension (gaseous) (principal); R63.0 Anorexia; Z53.21 Procedure and treatment not carried out due to patient leaving prior to being seen by health care provider ==